=== PATIENT | male | born 1980 | race Caucasian/White ===

== ENCOUNTER → 2020-07-12 11:13 | Outpatient (BNVA) | payer OTHER, SELFPAY | PROVIDERS: PCP Internal Medicine; Visit Provider Physician Assistant | DX: Z20.828 Contact with and (suspected) exposure to other viral communicable diseases (principal) | CPT/HCPCS: U0003 ==

== ENCOUNTER 2020-09-23 10:16 | Outpatient (REF) | payer OTHER, SELFPAY | END 2020-09-23 10:17 | disposition home or self-care (01) | LOC: HO.LAB 10:16 | PROVIDERS: PCP Internal Medicine; Visit Provider Internal Medicine | DX: Z20.822 Contact with and (suspected) exposure to COVID-19 (principal) | CPT/HCPCS: 36415; C9803; U0003 ==

== ENCOUNTER 2021-09-07 15:20 | Emergency (ER) | payer OTHER, SELFPAY | END 2021-09-07 19:18 | disposition left against medical advice (07) | LOC: HO.ED 19:10 | PROVIDERS: Emergency Provider Emergency Medicine | DX: J02.9 Acute pharyngitis, unspecified (principal) ==

== ENCOUNTER → 2025-03-05 15:23 | Outpatient (BNVA) | payer OTHER, SELFPAY | PROVIDERS: Visit Provider Physician Assistant Medical | DX: S81.032A Puncture wound without foreign body, left knee, initial encounter (principal); W22.8XXA Striking against or struck by other objects, initial encounter; L03.116 Cellulitis of left lower limb; M71.162 Other infective bursitis, left knee | CPT/HCPCS: 73564; 99203 ==

== ENCOUNTER → 2025-03-09 12:42 | Outpatient (BNVA) | payer OTHER, SELFPAY | PROVIDERS: Visit Provider Physician Assistant Medical | DX: S81.032A Puncture wound without foreign body, left knee, initial encounter (principal); W22.8XXA Striking against or struck by other objects, initial encounter; L03.116 Cellulitis of left lower limb; M71.162 Other infective bursitis, left knee; Z02.79 Encounter for issue of other medical certificate | CPT/HCPCS: 99213 ==